=== PATIENT | male | born 2000 | race American Indian/Alaskan Native ===

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

== ENCOUNTER 2022-01-06 18:02 | Emergency (ER) | payer SELFPAY ==
[2022-01-06] MEDS ORDERED: IPRATROPIUM 0.02% NEBU 2.5 ML IH ONE (18:54)
[2022-01-06] MEDS ORDERED: ALBUTEROL 2.5 MG/3 ML NEBU IH ONE (18:54)
--- NOTE | 2022-01-07 10:04 | Electrocardiograph Report ---
[facility] Test Date: 2022-01-06 Test Time: 18:12:41 Pat Name: ROBIN MORELAND Department: Room: Gender: M Compliance Program Manager: Darrell SCHULTZ RN : 2000 Requested By: ED DOC Order Number: [id number] Reading MD: Garo Sarah Measurements Intervals [place] Rate: 70 P: 68 IA: 170 QRS: 81 QRSD: 72 T: 61 QT: 348 QTc: 377 Interpretive Statements Sinus rhythm ST elev, probable normal early repol pattern No previous ECG available for comparison Electronically Signed On 01-07-2022 10:04:29 EST by Garo Sarah
== END 2022-01-07 09:26 | disposition left against medical advice (07) ==
LOC: ED 18:02
DX: R07.89 Other chest pain (principal); Z53.21 Procedure and treatment not carried out due to patient leaving prior to being seen by health care provider
CPT/HCPCS: 93005; 93010; 94640; 94644